=== PATIENT | male | born 1995 | race African-American/Black ===

== ENCOUNTER 2016-05-07 18:23 | Emergency (ER) | payer OTHER, MEDICAID ==
[~2016-05-07] VITALS: Ht 177.8 cm; Wt 65.0 kg
[2016-05-07] MEDS ORDERED: BACITRACIN ZINC OINT UDPKT TOP ONE (19:30)
[2016-05-07] MEDS ORDERED: LIDOCAINE HCL 1% 20ML VIAL (Pyxis) INJ MC ONE (19:30)
[2016-05-07] MEDS ORDERED: IBUPROFEN 600MG TABLET PO NR (20:00)
[2016-05-07 21:04] VITALS: BP 141/89
== END 2016-05-07 21:27 | disposition home or self-care (01) ==
LOC: ER 18:24
PROC: 0HQCXZZ Repair Left Upper Arm Skin, External Approach (ICD-10-PCS; principal; 2016-05-07)
DX: S51.812A Laceration without foreign body of left forearm, initial encounter (principal); J45.909 Unspecified asthma, uncomplicated; F12.10 Cannabis abuse, uncomplicated; F17.210 Nicotine dependence, cigarettes, uncomplicated; W20.8XXA Other cause of strike by thrown, projected or falling object, initial encounter; Y93.89 Activity, other specified; Y92.89 Other specified places as the place of occurrence of the external cause
CPT/HCPCS: 12002; 99283; J3490; Z7610

== ENCOUNTER 2016-05-20 15:43 | Emergency (ER) | payer OTHER, MEDICAID ==
[~2016-05-20] VITALS: Ht 167.6 cm; Wt 61.0 kg
[2016-05-20 16:10] VITALS: BP 126/78
== END 2016-05-20 18:57 | disposition home or self-care (01) ==
LOC: ER 16:29
DX: Z48.02 Encounter for removal of sutures (principal)
CPT/HCPCS: 99281; Z7610

== ENCOUNTER 2023-11-18 15:56 | Emergency (ER) | payer MEDICAID, OTHER ==
[~2023-11-18] VITALS: Ht 172.7 cm; Wt 70.0 kg
[2023-11-18 15:58] VITALS: BP 142/88; PULSE 102; RESP 18; TEMP 98; O2SAT 100
== END 2023-11-18 20:56 | disposition left against medical advice (07) ==
LOC: ER 15:56
DX: M79.10 Myalgia, unspecified site (principal); F12.10 Cannabis abuse, uncomplicated; J45.909 Unspecified asthma, uncomplicated
CPT/HCPCS: 99283

== ENCOUNTER 2024-01-20 17:38 | Emergency (ER) | payer MEDICAID, OTHER ==
[~2024-01-20] VITALS: Ht 165.1 cm; Wt 64.0 kg
[2024-01-20 17:44] VITALS: BP 135/89; PULSE 116; RESP 16; TEMP 98.9; O2SAT 97
[2024-01-20] MEDS ORDERED: MUPI15CR11 TP (17:48)
[2024-01-20] MEDS ORDERED: CEPH500C2 MT (17:48)
== END 2024-01-20 18:00 ==
LOC: ER 17:38
DX: S30.810A Abrasion of lower back and pelvis, initial encounter (principal); J45.909 Unspecified asthma, uncomplicated; F12.10 Cannabis abuse, uncomplicated; X58.XXXA Exposure to other specified factors, initial encounter; Y93.89 Activity, other specified; Y92.89 Other specified places as the place of occurrence of the external cause; Y99.8 Other external cause status
CPT/HCPCS: 99283